=== PATIENT | male | born 1965 | race Caucasian/White ===

== ENCOUNTER 2018-06-17 09:03 | Outpatient (CLI) | payer OTHER | END 2018-06-17 09:04 | disposition home or self-care (01) | LOC: CTENTCT 09:03 | PROVIDERS: ATTEND Otolaryngology Plastic Surgery within the Head & Neck | DX: J32.9 Chronic sinusitis, unspecified (principal) | CPT/HCPCS: 70486 ==

== ENCOUNTER 2018-06-25 09:03 | Day surgery (SDC) | payer OTHER ==
[2018-06-24 14:29] VITALS: BMI 17.3
[2018-06-25] MEDS ORDERED: Oxymetazoline HCl 0.05% ( 15 ML ) ONE ×2 (09:23→10:41)
[2018-06-25] MEDS ORDERED: Lidocaine 1% w/Epinephrine 1:100K 30 ML VIAL ONE (10:41)
[2018-06-25] MEDS ORDERED: Midazolam HCl 2 mg/2 ml Vial ONE (11:09)
[2018-06-25] MEDS ORDERED: Fentanyl 100 MCG/2 ML VIAL ONE (11:09)
[2018-06-25] MEDS ORDERED: HYDROcodone/Acetaminophen 5/325 mg Tablet ONE (13:14)
[2018-06-25] MEDS ORDERED: Ondansetron PF 4 MG/2 ML Vial ONE (16:10)
[2018-06-25] MEDS ORDERED: Dexamethasone 20 MG/5 ML VIAL ONE (16:10)
[2018-06-25] MEDS ORDERED: Lidocaine 1% PF 5 ML VIAL ONE (16:10)
[2018-06-25] MEDS ORDERED: Succinylcholine Chloride 20 MG/ML 10 ml SYRINGE FS ONE (16:10)
[2018-06-25] MEDS ORDERED: PROPOFOL 200 MG/20 ML VIAL ONE (16:10)
--- NOTE | 2018-06-26 11:16 | OP ---
DATE OF PROCEDURE: 06/25/2018 PREOPERATIVE DIAGNOSES: 1. Chronic rhinosinusitis. 2. Allergic fungal sinusitis. POSTOPERATIVE DIAGNOSES: 1. Chronic rhinosinusitis. 2. Allergic fungal sinusitis. PROCEDURES PERFORMED: 1. Bilateral endoscopic sinus surgery total ethmoidectomies. 2. Bilateral endoscopic sinus surgery frontal sinusotomies. 3. Bilateral endoscopic sinus surgery maxillary antrostomies with removal of tissue. 4. Bilateral endoscopic sinus surgery sphenoidotomies with removal of tissue. ESTIMATED BLOOD LOSS: 20 mL. COMPLICATIONS: None. ANESTHESIA: GETA. DESCRIPTION OF PROCEDURE: The patient was taken to the operating room and placed supine on the table. General endotracheal anesthesia was obtained by the Anesthesia staff. The tube was secured in the left lower lip. The patient was then placed in a beach-chair position. The patient was prepped and draped for standard endoscopic procedures. Following this, a 0 degree endoscope was advanced through the nasal cavity. The patient previously had a septoplasty and turbinate reduction. The middle turbinates were red and inflamed bilaterally. 1% lidocaine with 1:100,000 epinephrine was injected into the middle turbinates and the lateral nasal wall bilaterally. Following this, the ball-ended probe was used to anteriorly fractured the uncinate process bilaterally and the straight microdebrider was used to remove the uncinate process bilaterally. The natural maxillary sinus ostia was identified and was gently widened using a ball-ended probe, straight Blakesley forceps, and a microdebrider bilaterally. From within the maxillary sinus, there was allergic fungal debris noted and was removed using the curved microdebrider and curved suction bilaterally. Following this, ethmoidal bulla was identified bilaterally and was punctured on its medial and inferior aspect with microdebrider. The ethmoidal bulla and the anterior ethmoidal cells were then opened using the straight microdebrider. Following this, the grand lamella was identified and was punctured into the posterior ethmoidal cells using the straight microdebrider. Working from posterior to anterior, the ethmoidal cells were opened in a mucosal sparing technique. Through the ethmoidectomies, the sphenoid sinus was approached. The sphenoid sinus ostia was noted to be stenotic. None on the right side. Polypoid tissue and fungal debris were encountered. The sphenoid sinuses were punctured using the 0 degree microdebrider and were widened medially and anteriorly bilaterally. Following this, fungal debris and infection was removed from the right sphenoid sinus and remnants of bone was removed from the left inferior sphenoid sinus. Following this, the curved microdebrider and a 30 degree endoscopes were used to further visualize the frontal recess cells, which were opened using the curved microdebrider. The frontal sinus ostia was identified and was gently widened using the curved microdebrider bilaterally. Following this, the nasal cavity was irrigated. Mirapex was placed within the middle meatus. The patient tolerated the procedure well. Job ID: [id number]
--- NOTE | 2018-06-27 20:47 | EKG ---
Test Reason : PREOP Blood Pressure : / mmHG Vent. Rate : 063 BPM Atrial Rate : 063 BPM P-R Int : 154 ms QRS Dur : 102 ms QT Int : 408 ms P-R-T Axes : 068 059 042 degrees QTc Int : 417 ms Normal sinus rhythm with sinus arrhythmia Normal ECG No previous ECGs available Confirmed by Hernan MAYES ([id number]) on 06/27/2018 8:47:36 PM Referred By: ELOINA Confirmed By:Hernan MAYES
== END 2018-06-25 14:40 | disposition home or self-care (01) ==
LOC: SDC 09:03
PROVIDERS: ATTEND Otolaryngology Plastic Surgery within the Head & Neck
PROC: 09TV8ZZ Resection of Left Ethmoid Sinus, Via Natural or Artificial Opening Endoscopic (ICD-10-PCS; principal; 2018-06-25)
PROC: 09BR8ZZ Excision of Left Maxillary Sinus, Via Natural or Artificial Opening Endoscopic (ICD-10-PCS; principal; 2018-06-25)
PROC: 09BQ8ZZ Excision of Right Maxillary Sinus, Via Natural or Artificial Opening Endoscopic (ICD-10-PCS; principal; 2018-06-25)
PROC: 09BX8ZZ Excision of Left Sphenoid Sinus, Via Natural or Artificial Opening Endoscopic (ICD-10-PCS; principal; 2018-06-25)
PROC: 099T8ZZ Drainage of Left Frontal Sinus, Via Natural or Artificial Opening Endoscopic (ICD-10-PCS; principal; 2018-06-25)
PROC: 09BW8ZZ Excision of Right Sphenoid Sinus, Via Natural or Artificial Opening Endoscopic (ICD-10-PCS; principal; 2018-06-25)
PROC: 09TU8ZZ Resection of Right Ethmoid Sinus, Via Natural or Artificial Opening Endoscopic (ICD-10-PCS; principal; 2018-06-25)
PROC: 099S8ZZ Drainage of Right Frontal Sinus, Via Natural or Artificial Opening Endoscopic (ICD-10-PCS; principal; 2018-06-25)
DX: J32.4 Chronic pansinusitis (principal); J30.89 Other allergic rhinitis; J33.8 Other polyp of sinus; J34.3 Hypertrophy of nasal turbinates; G47.33 Obstructive sleep apnea (adult) (pediatric); F17.200 Nicotine dependence, unspecified, uncomplicated; Z99.89 Dependence on other enabling machines and devices; Z98.890 Other specified postprocedural states
CPT/HCPCS: 93005; 93010; J1100; J2001; J2250; J2405; J2704; J3010